=== PATIENT | female | born 1985 | race Asian ===

== ENCOUNTER 2023-09-12 11:21 | Outpatient (REF) | payer OTHER, SELFPAY ==
--- NOTE | ~2023-09-12 | US_ITS ---
EXAMINATION: US PELVIS CLINICAL INFORMATION: Pelvic pain left lower quadrant, last menstrual period August 29, 2023. COMPARISON: None available. TECHNIQUE: Ultrasound of the pelvis is performed using both transabdominal and transvaginal transducers along with Doppler. Transvaginal imaging is performed due to inadequate visualization transabdominally. FINDINGS: The uterus is anteverted and measures 9.1 x 4.1 x 6.3 cm. Endometrial thickness is 11 mm. No significant free fluid. Right ovary measures 1.4 x 1.8 x 1.6 cm, volume 4.9 mL and is grossly unremarkable. Left ovary measures 2.9 x 2.1 x 2.6 cm, volume 11.6 mL. A 2.1 x 1.8 x 1.4 cm left ovarian simple cyst. There is no specific indication for additional imaging at this time, although correlation with clinical exam recommended to determine further management for this patient with left lower quadrant pain. US/US pelvic and transvaginal IMPRESSION: 1. Endometrial thickness is 11 mm. 2. A 2.1 cm left ovarian simple cyst. There is no specific indication for additional imaging at this time, although correlation with clinical exam recommended to determine further management for this patient with left lower quadrant pain. This study was presented today September 13, 2023 for interpretation. Stat results provided at this time as requested by referring provider.
== END 2023-09-12 11:22 | disposition home or self-care (01) ==
LOC: HO.UMASIMG 11:21
PROVIDERS: Visit Provider Registered Nurse
DX: R10.2 Pelvic and perineal pain (principal); R30.0 Dysuria
CPT/HCPCS: 76830; 76856

== ENCOUNTER 2024-03-21 06:37 | Outpatient (REF) | payer OTHER, SELFPAY ==
--- NOTE | ~2024-03-21 | US_ITS ---
EXAMINATION: US ABDOMEN COMPLETE CLINICAL INFORMATION: Epigastric pain.. COMPARISON: None available. TECHNIQUE: Real-time imaging of the abdominal viscera using grayscale and color Doppler technique. FINDINGS: PANCREAS: No peripancreatic fluid collections. ABDOMINAL AORTA: The proximal, mid, and distal segments are normal in caliber. INFERIOR VENA CAVA: Visualized portions are normal. LIVER: Liver measures 16 cm. Increased echotexture. No nodular surface. There are multiple, well-defined, round and ovoid shaped anechoic lesions without flow on color Doppler interrogation throughout the liver parenchyma, the largest measures 1.9 cm.. No intrahepatic biliary ductal dilatation. . GALLBLADDER: Fluid-filled and contracted. No pericholecystic fluid collection or gallbladder wall thickening COMMON BILE DUCT: 4 mm. RIGHT KIDNEY: 15 cm. Normal echotexture. Renal cortical thickness is normal. No hydronephrosis. Multifocal, different sizes round and ovoid shaped anechoic lesions throughout the parenchyma without septations or flow on color Doppler interrogation, the largest measures 4.3 cm. There is flow on color Doppler interrogation of the renal hilum LEFT KIDNEY: 14 cm. Normal echotexture. Normal renal cortical thickness. No hydronephrosis. There are multifocal, multiple different sizes round anechoic lesions throughout the kidney with septations and probable airspace of calcifications, the largest measures 5 cm. There is flow on color Doppler interrogation of the renal hilum. SPLEEN: 10 cm. No focal lesion.. FREE FLUID: None. US/US abdomen complete IMPRESSION: Multifocal, different sizes multiple cystic lesions, hepatic and kidneys. Recommend further imaging evaluation with contrast-enhanced MRI abdomen. No cholelithiasis. No ascites. No hydronephrosis. Electronically signed by: Chris Valdivia MD 03/21/2024 11:15 AM EST
== END 2024-03-21 06:38 | disposition home or self-care (01) ==
LOC: HO.UMASIMG 06:37
PROVIDERS: Visit Provider Registered Nurse
DX: R10.13 Epigastric pain (principal)
CPT/HCPCS: 76700

== ENCOUNTER → 2024-03-21 09:30 | Outpatient (BNV) | payer OTHER, SELFPAY | PROVIDERS: Visit Provider Radiology Diagnostic Radiology | DX: N28.1 Cyst of kidney, acquired (principal); K76.89 Other specified diseases of liver | CPT/HCPCS: 76700 ==